=== PATIENT | male | born 1990 ===

== ENCOUNTER 2020-10-13 15:50 | Emergency (ER) | payer OTHER ==
[~2020-10-13] VITALS: Ht 172.7 cm; Wt 113.4 kg
[~2020-10-13 15:50] MED LIST: CLARITIN10 MG; TORADOL10 MG PO
[2020-10-13] MEDS ORDERED: CARAFATE1 GM PO (18:11)
[2020-10-13] MEDS ORDERED: PEPCID AC20 MG PO (18:11)
== END 2020-10-13 19:46 | disposition home or self-care (01) ==
LOC: ER 15:50
DX: R53.81 Other malaise (principal); R51.9 Headache, unspecified